=== PATIENT | female | born 1940 | race Hispanic/Latino ===

== ENCOUNTER 2017-11-08 12:06 | Emergency (ER) | payer MEDICARE, OTHER ==
[2017-11-08 12:06] VITALS: BMI 21.1
[2017-11-08 12:16] VITALS: PULSE 79; RESP 16; TEMP 97.8; O2SAT 100
[2017-11-08 12:18] VITALS: BP 147/68
--- NOTE | 2017-11-08 13:28 | C.PDOC ---
History Of Present Illness 77 yr old female presents to the s/p trip and fall 2 days ago. Patient states she landed on her right side and now has pain to the right hip and right thigh area. States she took Tylneol and had mild relief. Patient states she is able to walk but with pain. Denies bruising, incontinence, back pain, weakness or numbness. - HPI Time Seen by Provider: 11/08/17 12:41 Chief Complaint (Nursing): Trauma History Per: Patient History/Exam Limitations: no limitations Onset/Duration Of Symptoms: Days (2) Past Medical History Reviewed: Historical Data, Nursing Documentation, Vital Signs Vital Signs: Last Vital Signs Temp 97.8 F 11/08/17 12:13 Pulse 79 11/08/17 12:13 Resp 16 11/08/17 12:13 BP 147/68 11/08/17 12:18 Pulse Ox 100 11/08/17 14:56 - Medical History PMH: HTN Family History: States: No Known Family Hx - Social History Hx Alcohol Use: No Hx Substance Use: No Review Of Systems Except As Marked, All Systems Reviewed And Found Negative. Musculoskeletal: Positive for: Other ((+) right hip and right thigh pain). Negative for: Back Pain Neurological: Negative for: Weakness, Numbness Physical Exam - Physical Exam Appears: Non-toxic, No Acute Distress Skin: Warm, Dry, No Rash Head: Atraumatic, Normacephalic Eye(s): bilateral: Normal Inspection, EOMI Oral Mucosa: Moist Neck: Normal ROM Chest: Symmetrical Cardiovascular: Rhythm Regular, No Murmur Respiratory: Normal Breath Sounds, No Rhonchi, No Wheezing Back: Normal Inspection, No Vertebral Tenderness, No Decreased ROM, No Paraspinal Tenderness Extremity: Tenderness (mild tenderness to the lateral thigh), Other (Right Hip - tenderness, no ecchymosis, no swelling full ROM with pain) Neurological/Psych: Oriented x3, Normal Speech, Normal Motor, Normal Sensation Gait: Other (with limp) ED Course And Treatment O2 Sat by Pulse Oximetry: 100 (RA) Pulse Ox Interpretation: Normal - Other Rad X-Ray - Right Hip w/ Pelvis X-Ray: Viewed By Me, Read By Radiologist Interpretation: Indication: Pain status post fall. Right hip with pelvis. Comparison: None available. Findings: Osseous demineralization. Degenerative changes. Bilateral joint space narrowing. No acute displaced fracture or dislocation identified. Sacroiliac joints appear intact. [id number] constipation. Soft tissues appear unremarkable. No evidence of radiopaque foreign body. Impression: No acute displaced fracture or dislocation evident. If high clinical index of suspicion, suggest cross-sectional imaging for further evaluation. Otherwise, if symptoms persist or if there is continued clinical concern, x-ray follow-up in 7-10 days should be considered. Osseous demineralization. Degenerative changes. Mild to moderate constipation. Medical Decision Making Medical Decision Making: PLAN: * X-Ray - Right Hip w/ Pelvis No acute fracture seen on Xray Patient remained stable and in no distress. Advised rest and analgesics as needed. If pain persists longer than one week, then may need further eval or imaging. Disposition Counseled Patient/Family Regarding: Diagnosis, Need For Followup, Rx Given - Disposition Referrals: Rigo Mcallister MD [Medical Doctor] - Stephen Mccoy MD [Staff Provider] - Disposition: HOME/ ROUTINE Disposition Time: 13:36 Condition: STABLE Additional Instructions: Your xray was normal, no fracture. Please apply ice or heat to area 15 minutes three times a day. Take Tylenol or Motrin as needed for pain every 6 hours, with food to not upset stomach. Follow up with orthopedic if pain persists over one week. Instructions: Hip Contusion (ED) Forms: [facility] (Swedish) - POA Present On Arrival: None - Clinical Impression Clinical Impression: Contusion of hip, right - PA / [employer] / Resident Statement MD/DO has reviewed & agrees with the documentation as recorded. - Scribe Statement The provider has reviewed the documentation as recorded by the Scribe Aliyah Waldrop All medical record entries made by the Dariusiblowell were at my direction and personally dictated by me. I have reviewed the chart and agree that the record accurately reflects my personal performance of the history, physical exam, medical decision making, and the department course for this patient. I have also personally directed, reviewed, and agree with the discharge instructions and disposition.
--- NOTE | 2017-11-08 14:45 | RAD ---
Indication: Pain status post fall Right hip with pelvis Comparison: None available Findings: Osseous demineralization. Degenerative changes. Bilateral joint space narrowing. No acute displaced fracture or dislocation identified. Sacroiliac joints appear intact. [id number] constipation. Soft tissues appear unremarkable. No evidence of radiopaque foreign body. Impression: No acute displaced fracture or dislocation evident. If high clinical index of suspicion, suggest cross-sectional imaging for further evaluation. Otherwise, if symptoms persist or if there is continued clinical concern, x-ray follow-up in 7-10 days should be considered. Osseous demineralization. Degenerative changes. Mild to moderate constipation.
== END 2017-11-08 13:40 | disposition home or self-care (01) ==
LOC: C.ER 12:06
DX: S70.01XA Contusion of right hip, initial encounter (principal); W01.0XXA Fall on same level from slipping, tripping and stumbling without subsequent striking against object, initial encounter

== ENCOUNTER 2018-11-11 08:47 | Outpatient (CLI) | payer MEDICARE, OTHER | END 2018-11-11 08:48 | disposition home or self-care (01) | LOC: C.LAB 08:47 ==

== ENCOUNTER 2018-11-18 08:32 | Outpatient (CLI) | payer MEDICARE, OTHER | END 2018-11-18 08:33 | disposition home or self-care (01) | LOC: C.CARD 08:32 | DX: R07.9 Chest pain, unspecified (principal); I10 Essential (primary) hypertension ==